=== PATIENT | female | born 1990 | race African-American/Black ===

== ENCOUNTER 2018-12-20 10:01 | Emergency (ER) | payer OTHER ==
[2018-12-20 10:21] VITALS: BP 108/50; PULSE 84; TEMP 97.9; BMI 30.1
[2018-12-20] MEDS ORDERED: SODIUM CHLORIDE 1,000 ML IV STA (11:41)
[2018-12-20] MEDS ORDERED: ONDANSETRON 4 MG/2 ML VIAL IVPUSH ONE (11:41)
[2018-12-20] MEDS ORDERED: ONDANSETRON 4 MG/2 ML VIAL ONE (12:49)
[2018-12-20 12:53] LABS: BASO % 0.6 % (0-2.0); EOS % 0.1 % (0-4.5); HEMATOCRIT 39.8 % (32.4-45.2); HEMOGLOBIN 12.8 GM/dL (10.7-15.3); LYMPH % 33.7 % (8-40); MCH 25.7 pg (25.7-33.7); MCHC 32.3 g/dl (32.0-36.0); MEAN CELL VOLUME 79.7 fl (80-96); MEAN PLT VOLUME 9.2 fl (7.5-11.1); MONO % 6.8 % (3.8-10.2); NEUT % 58.8 % (42.8-82.8); PLATELET COUNT 181 K/MM3 (134-434); RBC 4.99 M/mm3 (3.60-5.2); RDW 15.9 % (11.6-15.6); WHITE BLOOD COUNT 3.8 K/mm3 (4.0-10.0)
[2018-12-20 12:55] LABS: EPI CELLS 12.9 /HPF (0-5/HPF); HYALINE CASTS 19 /lpf (0-8); URINE APPEARANCE CLOUDY; URINE BACTERIA 579.3 /hpf (NEGATIVE); URINE BILIRUBIN NEGATIVE (NEGATIVE); URINE COLOR DK YELLOW; URINE GLUCOSE (UA) NEGATIVE (NEGATIVE); URINE KETONE 4+ (NEGATIVE); URINE LEUK ESTERASE 1+ (NEGATIVE); URINE NITRITE NEGATIVE (NEGATIVE); URINE PROTEIN 1+ (NEGATIVE); URINE RBC 3 /hpf (0-4); URINE UROBILINOGEN 0.2 mg/dL (0.2-1.0); URINE WBC 27 /hpf (0-5)
[2018-12-20 13:23] LABS: ALBUMIN 4.1 g/dl (3.4-5.0); BILIRUBIN,TOTAL 0.4 mg/dL (0.2-1); BLOOD UREA NITROGEN 8.2 mg/dL (7-18); CALCIUM 9.3 mg/dL (8.5-10.1); CREATININE 0.7 mg/dL (0.55-1.3); POTASSIUM 3.9 mmol/L (3.5-5.1); TOT PROT 7.8 g/dl (6.4-8.2)
[2018-12-20] MEDS ORDERED: DEXTROSE 5%-NORMAL SALINE 1,000 ML IV ONE (13:46)
--- NOTE | 2018-12-20 13:48 | PDOC ---
History of Present Illness - General Chief Complaint: Nausea/Vomiting Stated Complaint: 6WKS,DIZZINESS,VOMITING Time Seen by Provider: 12/20/18 11:26 History Source: Patient Exam Limitations: No Limitations - History of Present Illness Travel History: No Initial Comments: 12/20/18 13:03 28 year old female currently 6 weeks presents to ED with complaints of nausea and vomiting since last week now causing her mild dizziness. Patient states has her first [employer] appointment next week with the nurse but has not had any [employer] care or ultrasound for this . Patient also complaining of mild headache without visual changes or fever. Timing/Duration: reports: intermittent Quality: reports: mild, moderate Pain Radiation: reports: no radiation Activities at Onset: reports: none Aggravating Factors: improves with: None Alleviating Factors: improves with: None Past History - Travel Traveled outside of the country in the last 30 days: No Close contact w/someone who was outside of country & ill: No - Past Medical History Allergies/Adverse Reactions: Allergies Allergy/AdvReac Type Severity Reaction Status Date / Time No Known Allergies Allergy Verified 12/20/18 10:21 Home Medications: Ambulatory Orders NK [No Known Home Medication] 12/20/18 COPD: No - Reproductive History Is Patient Now?: Yes (#): 1 Para: 0 Therapeutic (s) & number: No - Suicide/Smoking/Psychosocial Hx Smoking History: Never smoked Information on smoking cessation initiated: No Hx Alcohol Use: No Drug/Substance Use Hx: No Patient Lives Alone: No Lives with/in: spouse/SO Review of Systems - Review of Systems Able to Perform ROS?: Yes Constitutional: Yes: Weakness HEENTM: No: Symptoms Reported Respiratory: No: Symptoms reported Cardiac (ROS): Yes: Lightheadedness ABD/GI: Yes: Nausea, Poor Appetite, Poor Fluid Intake, Vomiting. No: Abdominal cramping : No: Symptoms Reported Musculoskeletal: No: Symptoms Reported Integumentary: No: Symptoms Reported Neurological: Yes: Weakness, Dizziness Hematologic/Lymphatic: No: Symptoms Reported *Physical Exam - Vital Signs Last Vital Signs Temp Pulse Resp BP Pulse Ox 97.9 F 84 19 108/50 L 99 12/20/18 10:19 12/20/18 10:19 12/20/18 10:19 12/20/18 10:12/20/18 10:19 - Physical Exam General Appearance: Yes: Nourished, Appropriately Dressed. No: Apparent Distress HEENT: positive: EOMI, LADAN, TMs Normal, Pharynx Normal. negative: Pale Conjunctivae Neck: positive: Supple Respiratory/Chest: positive: Lungs Clear, Normal Breath Sounds. negative: Respiratory Distress, Accessory Muscle Use Cardiovascular: positive: Regular Rhythm, Regular Rate. negative: Murmur Gastrointestinal/Abdominal: positive: Soft. negative: Tenderness Extremity: positive: Normal Inspection Integumentary: positive: Normal Color, Warm, Moist Neurologic: positive: Motor Strength 5/5 (ambulatory) ED Treatment Course - LABORATORY CBC & Chemistry Diagram: 12/20/18 12:45 12/20/18 12:45 - ADDITIONAL ORDERS Additional order review: Laboratory Results 12/20/18 12/20/18 12/20/18 12:45 12:45 12:25 Sodium 136 Potassium 3.9 Chloride 103 Carbon Dioxide 22 Anion Gap 11 BUN 8.2 Creatinine 0.7 Est GFR (CKD-EPI)AfAm 135.70 Est GFR (CKD-EPI)NonAf 117.08 Random Glucose 71 L Calcium 9.3 Magnesium 1.9 Total Bilirubin 0.4 AST 16 ALT 14 Alkaline Phosphatase 33 L Total Protein 7.8 Albumin 4.1 Urine Color Dk yellow Urine Appearance Cloudy Urine pH 6.0 Ur Specific [place] 1.036 H Urine Protein 1+ H Urine Glucose (UA) Negative Urine Ketones 4+ H Urine Blood Negative Urine Nitrite Negative Urine Bilirubin Negative Urine Urobilinogen 0.2 Ur Leukocyte Esterase 1+ H Urine WBC (Auto) 27 Urine RBC (Auto) 3 Urine Casts (Auto) 19 U Pathogenic Cast Auto none seen U Epithel Cells (Auto) 12.9 Urine Bacteria (Auto) 579.3 12/20/18 12:45 RBC 4.99 MCV 79.7 L MCHC 32.3 RDW 15.9 H MPV 9.2 Neutrophils % 58.8 Lymphocytes % 33.7 Monocytes % 6.8 Eosinophils % 0.1 Basophils % 0.6 - RADIOLOGY Radiology Studies Ordered: Category Date Time Status <14WKS US [US] Stat Ultrasound 12/20/18 11:41 Ordered - Medications Given in the ED: ED Medications Discontinued Medications Generic Name Dose Route Start Last Admin Trade Name Freq PRN Reason Stop Dose Admin Sodium Chloride 1,000 mls @ 1,000 mls/hr 12/20/18 11:41 12/20/18 13:00 Normal Saline - IV 12/20/18 12:40 1,000 mls/hr ASDIR STA Administration Ondansetron HCl 4 mg 12/20/18 11:41 12/20/18 13:00 Zofran Injection IVPUSH 12/20/18 11:42 4 mg ONCE ONE Administration Medical Decision Making - Medical Decision Making 12/20/18 13:05 Chief complaint: Nausea vomiting now causing dizziness the past week. Patient currently 6 weeks . Exam: Vital signs stable no abdominal tenderness Plan: IV fluids, IV Zofran, CBC, comp urine and ultrasound ordered 12/20/18 13:47 Laboratory Tests 12/20/18 12/20/18 12/20/18 12:25 12:45 12:45 WBC 3.8 L Hgb 12.8 Hct 39.8 RDW 15.9 H Plt Count 181 Sodium 136 Potassium 3.9 Chloride 103 Carbon Dioxide 22 BUN 8.2 Creatinine 0.7 Random Glucose 71 L Calcium 9.3 Magnesium Total Bilirubin 0.4 AST 16 ALT 14 Alkaline Phosphatase 33 L Total Protein 7.8 Albumin 4.1 Ur Specific [place] 1.036 H Urine Protein 1+ H Urine Ketones 4+ H Urine Blood Negative Urine Nitrite Negative Ur Leukocyte Esterase 1+ H Urine WBC (Auto) 27 Urine RBC (Auto) 3 Urine Bacteria (Auto) 579.3 12/20/18 12:45 WBC Hgb Hct RDW Plt Count Sodium Potassium Chloride Carbon Dioxide BUN Creatinine Random Glucose Calcium Magnesium 1.9 Total Bilirubin AST ALT Alkaline Phosphatase Total Protein Albumin Ur Specific [place] Urine Protein Urine Ketones Urine Blood Urine Nitrite Ur Leukocyte Esterase Urine WBC (Auto) Urine RBC (Auto) Urine Bacteria (Auto) d5 ns bolus and u cx ordered 12/20/18 15:17 Shows single live intrauterine with estimated sonographic gestational age of 6 weeks 2 days based on crown-rump length the heart rate of 1 34 bpm. There is a hypoechoic density in the right ovary measuring 2.1 x 1.3 cm that may represent a hemorrhagic cyst/corpus luteum cyst. Patient states feeling much better after receiving fluids. Urine culture pending collection patient currently tolerating apple juice and will be discharged home with zofran 12/20/18 16:13 Urine culture sent. Patient be treated with Keflex, *DC/Admit/Observation/Transfer Diagnosis at time of Disposition: Nausea/vomiting in , UTI (urinary tract infection) - Discharge Dispostion Disposition: HOME Condition at time of disposition: Improved - Referrals - Patient Instructions Printed Discharge Instructions: DI for Hyperemesis Gravidarum, DI for Urinary Tract Infection (UTI) Additional Instructions: Drink plenty of fluids . Take antibiotics as prescribed. Take Zofran as needed for nausea - Post Discharge Activity
== END 2018-12-20 16:36 | disposition home or self-care (01) ==
LOC: JER 10:01
PROC: 3E0337Z Introduction of Electrolytic and Water Balance Substance into Peripheral Vein, Percutaneous Approach (ICD-10-PCS; principal; 2018-12-20)
PROC: 3E033GC Introduction of Other Therapeutic Substance into Peripheral Vein, Percutaneous Approach (ICD-10-PCS; 2018-12-20)
DX: O26.891 Other specified pregnancy related conditions, first trimester (principal); O21.0 Mild hyperemesis gravidarum; O23.41 Unspecified infection of urinary tract in pregnancy, first trimester; Z3A.01 Less than 8 weeks gestation of pregnancy
CPT/HCPCS: 36415; 76801-TC; 80053; 81003; 83735; 85025; 87086; 99283-25; J7030

== ENCOUNTER 2021-01-11 07:39 | Emergency (ER) | payer OTHER ==
[2021-01-11 08:07] VITALS: BP 106/73; TEMP 98.5; BMI 27.3
[2021-01-11] MEDS ORDERED: IBUPROFEN 600 MG TABLET (FP) PO ONE ×2 (08:28→08:45)
[2021-01-11 11:26] VITALS: PULSE 93
== END 2021-01-11 11:32 | disposition home or self-care (01) ==
LOC: JER 07:39
DX: M79.10 Myalgia, unspecified site (principal)
CPT/HCPCS: 87804; 99283-25; C9803; U0003; U0005

== ENCOUNTER 2022-06-01 05:40 | Emergency (ER) | payer OTHER ==
[2022-06-01 05:49] VITALS: BP 116/79; PULSE 84; RESP 18; TEMP 98.2; BMI 26.6
[2022-06-01] MEDS ORDERED: LIDOCAINE 5% TOPICAL PATCH TP ONE (06:03)
[2022-06-01] MEDS ORDERED: IBUPROFEN 600 MG TABLET (FP) PO ONE ×2 (06:03→06:19)
[2022-06-01] MEDS ORDERED: METHOCARBAMOL 500 MG TABLET PO ONE (06:04)
[2022-06-01] MEDS ORDERED: METHOCARBAMOL 500 MG TABLET ONE (06:19)
[2022-06-01] MEDS ORDERED: LIDOCAINE 5% TOPICAL PATCH ONE (06:19)
[2022-06-01] MEDS ORDERED: LIDOCAINE PATCH REMOVAL MC SCH (22:00)
== END 2022-06-01 06:29 | disposition home or self-care (01) ==
LOC: JER 05:40
DX: S39.012A Strain of muscle, fascia and tendon of lower back, initial encounter (principal); M54.50 Low back pain, unspecified; X50.1XXA Overexertion from prolonged static or awkward postures, initial encounter; Y93.89 Activity, other specified
CPT/HCPCS: 99283-25

== ENCOUNTER 2022-08-31 15:55 | Day surgery (SDC) | payer OTHER ==
[2022-08-31] MEDS ORDERED: ONDANSETRON 4 MG/2 ML VIAL IVPUSH ONE (17:02)
[2022-08-31] MEDS ORDERED: ACETAMINOPHEN 1000 MG/100 ML BAG IVPB ONE (17:02)
[2022-08-31] MEDS ORDERED: LACTATED RINGERS SOLUTION 1000 ML INFUS.BAG IV ONE (17:02)
[2022-08-31] MEDS ORDERED: morphine CARPU-JECT 2 MG/1 ML DISP.SYRIN IVPUSH ONE (17:02)
[2022-08-31] MEDS ORDERED: FAMOTIDINE 20 MG/50 ML IVPB 20 MG/50 ML MG IVPB ONE ×2 (17:02→17:15)
[2022-08-31] MEDS ORDERED: ONDANSETRON 4 MG/2 ML VIAL ONE (17:15)
[2022-08-31] MEDS ORDERED: morphine SULFATE 4 MG/ML VIAL ONE (17:15)
[2022-08-31] MEDS ORDERED: ACETAMINOPHEN INJECTION 100 ML IVPB ONE (17:15)
[2022-08-31 17:23] LABS: BASO % 0.3 % (0-2.0); HEMATOCRIT 32.3 % (32.4-45.2); HEMOGLOBIN 9.9 GM/dL (10.7-15.3); LYMPH % 7.6 % (8-40); MCH 20.9 pg (25.7-33.7); MCHC 30.6 g/dl (32.0-36.0); MEAN CELL VOLUME 68.4 fl (80-96); MEAN PLT VOLUME 8.8 fl (7.5-11.1); NEUT % 89.1 % (42.8-82.8); PLATELET COUNT 222 10^3/uL (134-434); RBC 4.73 M/mm3 (3.60-5.2); RDW 19.5 % (11.6-15.6); WHITE BLOOD COUNT 8.1 K/mm3 (4.0-10.0)
[2022-08-31 17:30] LABS: INR 1.12 (0.83-1.09)
[2022-08-31 17:33] LABS: ACTIVATED PTT 25.9 SECONDS (25.2-36.5)
[2022-08-31 17:35] LABS: POTASSIUM 4.3 mmol/L (3.5-5.1)
[2022-08-31 17:38] LABS: ALBUMIN 3.9 g/dl (3.4-5.0); BLOOD UREA NITROGEN 15.1 mg/dL (7-18); MAGNESIUM 1.5 mg/dL (1.8-2.4)
[2022-08-31 17:41] LABS: CREATININE 0.9 mg/dL (0.55-1.3)
[2022-08-31 17:42] LABS: BILIRUBIN,TOTAL 0.4 mg/dL (0.2-1); TOT PROT 8.1 g/dl (6.4-8.2)
[2022-08-31] MEDS ORDERED: MAGNESIUM SULF 50% (8.12 MEQ/2 ML-1 GM VIAL) IVPB ONE (17:56)
[2022-08-31] MEDS ORDERED: MAGNESIUM SULFATE IN WATER 2 GM/50 ML IVPB IVPB ONE (18:13)
[2022-08-31] MEDS ORDERED: cefOXitin SODIUM 1 GM/10 ML PUSH (RESTRICTED TO ID) IVPUSH ONE (19:29)
[2022-08-31] MEDS ORDERED: CEFTRIAXONE 1,000 MG in DEXTROSE 5%-WATER - 50 ML IVPB ONE (19:36)
[2022-08-31] MEDS ORDERED: CEFTRIAXONE 1 GM/50 ML BAG ONE (20:15)
[2022-08-31 20:44] LABS: ANISOCYTOSIS 1+; MACROCYTOSIS 0; PLATELET ESTIMATE NORMAL
[2022-08-31] MEDS ORDERED: DEXTROSE 5%-0.45% SALINE 1,000 ML IV SCH (23:45)
[2022-08-31] MEDS ORDERED: ONDANSETRON 4 MG/2 ML VIAL IVPUSH PRN (23:58)
[2022-08-31] MEDS ORDERED: morphine SULFATE 4 MG/ML VIAL IVPUSH PRN (23:58)
[2022-09-01 00:45] VITALS: BMI 31.9
[2022-09-01] MEDS ORDERED: MIDAZOLAM HCL 2 MG/2 ML SINGLE DOSE VIAL ONE (08:15)
[2022-09-01] MEDS ORDERED: ceFAZolin SODIUM 1 GM VIAL IVPB ONE (08:50)
[2022-09-01 08:53] LABS: URINE APPEARANCE CLEAR; URINE BILIRUBIN NEGATIVE (NEGATIVE); URINE COLOR YELLOW; URINE GLUCOSE (UA) NEGATIVE (NEGATIVE); URINE KETONE NEGATIVE (NEGATIVE); URINE LEUK ESTERASE NEGATIVE (NEGATIVE); URINE NITRITE NEGATIVE (NEGATIVE); URINE PROTEIN NEGATIVE (NEGATIVE); URINE UROBILINOGEN 0.2 mg/dL (0.2-1.0)
[2022-09-01] MEDS ORDERED: DEXAMETHASONE SOD PHOSPHATE 4 MG/1 ML VIAL ONE (08:57)
[2022-09-01] MEDS ORDERED: ceFAZolin SODIUM 1 GM VIAL ONE (08:57)
[2022-09-01] MEDS ORDERED: KETOROLAC TROMETHAMINE 30 MG/1 ML VIAL ONE (08:57)
[2022-09-01] MEDS ORDERED: ONDANSETRON 4 MG/2 ML VIAL ONE (08:57)
[2022-09-01] MEDS ORDERED: BUPIVACAINE HCL/PF 0.5% (5MG/ML) 10 ML VIAL NR ONE (09:15)
[2022-09-01] MEDS ORDERED: GLYCOPYRROLATE 0.2 MG/1 ML VIAL ONE (09:36)
[2022-09-01] MEDS ORDERED: NEOSTIGMINE METHYLSULFATE 0.5 MG/1 ML - 10 ML MDV ONE (09:36)
[2022-09-01] MEDS ORDERED: CEFTRIAXONE 1 GM in DEXTROSE 5%-WATER - 50 ML IVPB SCH (10:00)
[2022-09-01] MEDS ORDERED: oxyCODONE HCL 5 MG TABLET PO PRN ×4 (10:11→11:17)
[2022-09-01] MEDS ORDERED: LACTATED RINGERS SOLUTION 1,000 ML IV SCH (10:15)
[2022-09-01] MEDS ORDERED: ONDANSETRON 4 MG/2 ML VIAL IVPUSH PRN (11:17)
[2022-09-01] MEDS ORDERED: ACETAMINOPHEN 500 MG TABLET (FP) PO PRN (11:17)
[2022-09-01] MEDS ORDERED: ACETAMINOPHEN INJECTION 100 ML IVPB ONE (11:20)
[2022-09-01] MEDS ORDERED: ACETAMINOPHEN 1000 MG/100 ML BAG IVPB ONE (11:20)
[2022-09-01] MEDS: LACTATED RINGERS SOLUTION 1,000 ML IV SCH ×2 (11:25→20:11)
[2022-09-01 21:10] LABS: BASO % 0.2 % (0-2.0); EOS % 0.1 % (0-4.5); HEMATOCRIT 29.8 % (32.4-45.2); HEMOGLOBIN 9.2 GM/dL (10.7-15.3); LYMPH % 3.9 % (8-40); MCH 20.8 pg (25.7-33.7); MCHC 30.9 g/dl (32.0-36.0); MEAN CELL VOLUME 67.5 fl (80-96); MEAN PLT VOLUME 8.7 fl (7.5-11.1); MONO % 3.3 % (3.8-10.2); NEUT % 92.5 % (42.8-82.8); PLATELET COUNT 221 10^3/uL (134-434); RBC 4.41 M/mm3 (3.60-5.2); RDW 19.4 % (11.6-15.6); WHITE BLOOD COUNT 9.1 K/mm3 (4.0-10.0)
[2022-09-01 21:30] LABS: CALCIUM 8.6 mg/dL (8.5-10.1)
[2022-09-01 21:31] LABS: ALBUMIN 3.5 g/dl (3.4-5.0); BLOOD UREA NITROGEN 9.6 mg/dL (7-18)
[2022-09-01 21:34] LABS: CREATININE 0.8 mg/dL (0.55-1.3)
[2022-09-01 21:35] LABS: BILIRUBIN,TOTAL 0.4 mg/dL (0.2-1); TOT PROT 7.2 g/dl (6.4-8.2)
[2022-09-01 21:58] LABS: ANISOCYTOSIS 2+; MACROCYTOSIS 0; OVALOCYTE 1+; TARGET CELLS 1+; TEAR DROP CELLS 1+
[2022-09-02] MEDS: LACTATED RINGERS SOLUTION 1,000 ML IV SCH (03:28)
[2022-09-02 08:23] LABS: BASO % 0.2 % (0-2.0); EOS % 0.1 % (0-4.5); HEMATOCRIT 27.2 % (32.4-45.2); HEMOGLOBIN 8.4 GM/dL (10.7-15.3); LYMPH % 18.2 % (8-40); MCH 21.5 pg (25.7-33.7); MCHC 31.1 g/dl (32.0-36.0); MEAN CELL VOLUME 69.1 fl (80-96); MONO % 6.6 % (3.8-10.2); NEUT % 74.9 % (42.8-82.8); PLATELET COUNT 194 10^3/uL (134-434); RBC 3.93 M/mm3 (3.60-5.2); RDW 19.5 % (11.6-15.6); WHITE BLOOD COUNT 6.8 K/mm3 (4.0-10.0)
[2022-09-02 08:39] LABS: POTASSIUM 3.8 mmol/L (3.5-5.1)
[2022-09-02 08:46] LABS: CALCIUM 8.3 mg/dL (8.5-10.1)
[2022-09-02 08:47] LABS: BLOOD UREA NITROGEN 11.8 mg/dL (7-18)
[2022-09-02 08:50] LABS: CREATININE 0.8 mg/dL (0.55-1.3)
[2022-09-02 09:10] VITALS: BP 112/72; PULSE 72; RESP 19; TEMP 98.3
== END 2022-09-02 14:29 | disposition home or self-care (01) ==
LOC: JER 15:55 → JERBED 19:40 → UNDOADMIN 19:40 → JERBED 23:24 → JASUSAT 23:24 → J6S 23:24 → JASUSAT 09-01 12:42
PROVIDERS: ATTEND Internal Medicine
PROC: 0DTJ4ZZ Resection of Appendix, Percutaneous Endoscopic Approach (ICD-10-PCS; principal; 2022-09-01 08:00)
DX: K35.80 Unspecified acute appendicitis (principal)
CPT/HCPCS: 36415; 74177-TC; 80048; 80053; 81003; 83735; 84703; 85025; 85610; 85730; 86850; 86900; 86901; 87086; 87635; 88304-TC; 93005; 93010; 94760; 99285-25; Q9967